=== PATIENT | female | born 1990 | race African-American/Black ===

== ENCOUNTER → 2020-05-12 11:01 | Outpatient (CLI) | payer OTHER, SELFPAY ==
--- NOTE | ~2020-05-12 | XR_ITS ---
EXAMINATION: XR hip LT min 2V INDICATION: Left hip pain TECHNIQUE: Three views of the left hip are obtained. COMPARISON: None available FINDINGS: Bone alignment is normal. There is no fracture. The soft tissues are unremarkable. Mild lef t hip osteoarthritis is noted. IMPRESSION: 1. Mild hip osteoarthritis. Reviewed, dictated and finalized at location A. NG FINISHER IMPRESSION: 1. Mild hip osteoarthritis.
== END ==
PROVIDERS: PCP Emergency Medicine; Visit Provider Emergency Medicine
DX: M16.12 Unilateral primary osteoarthritis, left hip (principal)
CPT/HCPCS: 73502

== ENCOUNTER 2021-05-29 11:31 | Outpatient (CLI) | payer OTHER, SELFPAY ==
--- NOTE | ~2021-05-29 | XR_ITS ---
XR lumbar spine 2-3V DATE: 05/29/2021 11:52 INDICATION: Low back pain TECHNIQUE: AP, lateral, coned lateral lumbosacral views COMPARISON: None FINDINGS: There is mild degenerative spurring of the lower thoracic spine. No fracture or bone destru ction or spondylolisthesis. The lumbar and lumbosacral interspaces are well preserved. Sacroiliac bessy nts are intact. IMPRESSION: Mild degenerative spurring of the lower thoracic spine Reviewed, dictated and finalized at location A. [employer] TE[employer]VISION INST[employer]ER
== END 2021-05-29 11:32 | disposition home or self-care (01) ==
PROVIDERS: PCP Emergency Medicine; Visit Provider Emergency Medicine
DX: K76.0 Fatty (change of) liver, not elsewhere classified (principal); M54.50 Low back pain, unspecified; M46.04 Spinal enthesopathy, thoracic region
CPT/HCPCS: 72100

== ENCOUNTER → 2021-07-06 07:36 | Outpatient (CLI) | payer OTHER, SELFPAY ==
[2021-07-06 19:04] LABS: SARS-CoV-2 RNA PCR Negative
== END ==
PROVIDERS: PCP Emergency Medicine; Visit Provider Emergency Medicine
DX: Z20.822 Contact with and (suspected) exposure to COVID-19 (principal)
CPT/HCPCS: C9803; U0003; U0005

== ENCOUNTER 2022-04-28 09:06 | Outpatient (CLI) | payer OTHER, SELFPAY ==
[2022-04-28 10:00] LABS: Hematocrit 35.9 % (37.0-47.0); Hemoglobin 11.6 g/dL (12.0-15.0); Mean Corpuscular HGB Conc 32.3 g/dl (32-36); Mean Corpuscular Hemoglobin 29.1 pg (26-34); Mean Corpuscular Volume 90.2 fl (80-100); Platelet Count Result 212 k/mm3 (150-375); Red Blood Count 3.98 M/mm3 (4.2-5.4); Red Cell Distribution Width 14.1 % (11.5-14.5); White Blood Count 8.4 K/mm3 (4.5-10.0)
[2022-04-28 10:00] LABS: Add Urine Microscopic? NO; Appearance Urine Clear (Clear); Bilirubin Urine Negative (Negative); Blood Urine Negative (Negative); Color Urine Yellow (Yellow); Glucose Urine UA Negative (Negative); Ketones Urine Negative (Negative); Leukocyte Esterase Ur Negative LEU/UL (NEGATIVE); Nitrate Urine Negative (Negative); Protein Urine Negative (Negative); Specific Grav Ur 1.017 (1.001-1.035); Urobilinogen Urine Negative mg/dL (<2.0)
[2022-04-28 10:06] LABS: Creatinine Urine 119.5 mg/dL
[2022-04-28 10:15] LABS: Rheumatoid Factor < 8.6 IU/ML (<12)
[2022-04-28 10:16] LABS: Cholesterol 160 mg/dL (0-200); HDL Direct 40 mg/dL; Triglycerides 56 mg/dL (<150)
[2022-04-28 10:17] LABS: Alanine Aminotransferase 15 U/L (6-35); Albumin Level 4.1 g/dL (3.5-5.1); Alkaline Phosphatase 50 U/L (38-126); Anion Gap 8 mmol/L (8-16); Aspartate Amino Transferase 22 U/L (14-36); Bilirubin,Total 0.4 mg/dL (0.2-1.3); Blood Urea Nitrogen 8 mg/dL (7-17); Calcium 8.5 mg/dL (8.4-10.2); Carbon Dioxide 25 mmol/L (22-30); Chloride 104 mmol/L (98-107); Creatine Kinase 233 U/L (30-135); Estimated Glomerular Filt Rate > 60; Glucose 99 mg/dL (65-110); Potassium 3.9 mmol/L (3.4-5.0); Sodium 137 mmol/L (137-145)
[2022-04-28 10:24] LABS: MALB Creatinine Ratio < 5.0 mg/g (0-30); Microalbumin Urine Random < 6.0 mg/L (0-16.7)
[2022-04-28 10:27] LABS: LDL Cholesterol Direct 95 mg/dL
[2022-04-28 10:37] LABS: Free T4 Free Thyroxine 0.94 ng/mL (0.78-2.19)
[2022-04-28 10:41] LABS: Erythrocyte Sedimentation Rate 22 mm/hr (0-20)
[2022-04-28 11:08] LABS: HAV RESULT Negative (Negative); Hepatitis B Core IgM Result Negative (Negative); Hepatitis B Surface Antigen Negative (Negative); Rubella IgG Antibody 24.5 IU/ML
[2022-04-28 11:19] LABS: Hepatitis C Virus Antibody Negative (Negative)
[2022-04-28 11:31] LABS: Hemoglobin A1C 5.9 % (<5.7)
[2022-04-28 12:04] LABS: Vitamin D 25 Hydroxy 25.2 ng/mL
[2022-04-28 22:35] LABS: Hepatitis B Surface Antibody > 1000.00 s/c
[2022-04-28 22:43] LABS: Hepatitis B Surface Anti Res Positive
== END 2022-04-28 09:07 | disposition home or self-care (01) ==
LOC: ANHLAB 09:10
PROVIDERS: PCP Emergency Medicine; Visit Provider Emergency Medicine
DX: E55.9 Vitamin D deficiency, unspecified (principal); E10.9 Type 1 diabetes mellitus without complications
CPT/HCPCS: 36415; 80053; 80061; 80074; 81003; 82043; 82306; 82550; 83036; 84439; 84443; 85027; 85652; 86038; 86430; 86706; 86735; 86765; 86787